=== PATIENT | female | born 1975 | race Caucasian/White ===

== ENCOUNTER 2020-01-24 15:39 | Outpatient (CLI) | payer OTHER, SELFPAY ==
[2020-01-24 16:33] LABS: Basophils Absolute Auto 0.04 K/mm3 (0.00-0.10); Basophils Percent Auto 0.9 % (0.0-1.0); Eosinophils Percent Auto 2.4 % (1.0-6.0); Hematocrit 36.3 % (35.0-49.0); Hemoglobin 11.6 g/dL (12.0-15.0); Immature Granulocyte Absolute 0.01 K/mm3 (0.00-0.00); Immature Granulocyte Percent A 0.2 % (0.0-0.0); Mean Corpuscular Hemoglobin 28.6 pg (27.0-31.0); Mean Corpuscular Volume 89.4 fL (78.0-102.0); Mean Platelet Volume 9.9 fl (9.2-11.8); Monocytes Absolute Auto 0.36 K/mm3 (0.10-0.90); Monocytes Percent Auto 8.5 % (2.0-11.0); Neutrophils Absolute Auto 1.8 K/mm3 (1.7-7.2); Platelet Count Result 228 K/mm3 (150-420); Red Blood Count 4.06 M/mm3 (4.20-5.40); Red Cell Distribution Width 12.6 % (11.6-14.4); White Blood Count 4.2 K/mm3 (4.8-10.8)
[2020-01-25 14:53] LABS: SARS-CoV-2 RNA PCR Negative
== END 2020-01-24 15:40 | disposition home or self-care (01) ==
LOC: CHSLAB 15:42
PROVIDERS: PCP Internal Medicine; Visit Provider Internal Medicine
DX: J02.9 Acute pharyngitis, unspecified (principal); Z20.828 Contact with and (suspected) exposure to other viral communicable diseases
CPT/HCPCS: 36415; 85025; 87635; C9803; U0003

== ENCOUNTER 2020-04-06 16:28 | Outpatient (CLI) | payer OTHER, SELFPAY ==
--- NOTE | ~2020-04-06 | MM_ITS ---
EXAMINATION: MM screening marilyn BI w aaron HISTORY: Screening mammogram TECHNIQUE: Craniocaudal and mediolateral oblique 3-D tomosynthesis images were obtained and synthetic 2-D images were generated. CAD analysis was submitted and interpreted. COMPARISON: 04/04/2019, 02/19/2018 bilateral digital screening mammogram examinations BREAST PARENCHYMAL COMPOSITION: There are scattered areas of fibroglandular density. FINDINGS: There is no evidence of suspicious mass, calcification, or architectural distortion to sugg est malignancy in either breast. There has been no suspicious interval change. IMPRESSION: 1. No mammographic evidence of malignancy. 2. Recommend routine screening mammography in one year. BI-RADS Category 1: Negative Reviewed, dictated and finalized at location A. LE POINTED OPERATOR
== END 2020-04-06 16:29 | disposition home or self-care (01) ==
LOC: ANHIMG 16:30
PROVIDERS: PCP Internal Medicine; Visit Provider Obstetrics & Gynecology
DX: Z12.31 Encounter for screening mammogram for malignant neoplasm of breast (principal)
CPT/HCPCS: 77063; 77067

== ENCOUNTER 2021-01-04 14:44 | Outpatient (CLI) | payer OTHER, SELFPAY ==
--- NOTE | ~2021-01-04 | CT_ITS ---
EXAMINATION: CT abdomen pelvis wo con DATE: 01/04/2021 15:04 INDICATION: Right flank pain. Nausea and diarrhea. TECHNIQUE: Computed tomography (CT) of the abdomen and pelvis was performed without intravenous contr ast. Automated exposure control and iterative reconstruction technique were employed. The dose-length product was 167.00 mGy-cm. COMPARISON: CT abdomen and pelvis 10/31/2018 FINDINGS: The visualized portions of the lung bases are clear without pneumonia or pleural effusion. The heart size is normal. No pericardial effusion. There is a 6.2 x 4.0 cm pericardial cyst in right cardiophrenic angle. The liver is normal. There are changes of cholecystectomy. The spleen, pancreas, and adrenal glands are normal. There is medullary nephrocalcinosis on the right. There is a 2 mm sto ne in left kidney. There are no dilated loops of bowel. The appendix is normal. There are no patholog ically enlarged lymph nodes. There is no free intraperitoneal fluid. There is mild lumbar spondylosis . IMPRESSION: 1. Small nonobstructing left kidney stone. Reviewed, dictated and finalized at location A.
== END 2021-01-04 14:45 | disposition home or self-care (01) ==
LOC: CHSLAB 14:46
PROVIDERS: PCP Internal Medicine; Visit Provider Internal Medicine
DX: M54.9 Dorsalgia, unspecified (principal); R10.9 Unspecified abdominal pain; Z87.442 Personal history of urinary calculi; N20.0 Calculus of kidney
CPT/HCPCS: 74176

== ENCOUNTER 2021-01-06 08:44 | Outpatient (CLI) | payer OTHER, SELFPAY ==
--- NOTE | ~2021-01-06 | XR_ITS ---
XR abdomen/kub 1V DATE: 01/06/2021 09:09 INDICATION: Bilateral flank pain TECHNIQUE: AP projection, 2 views COMPARISON: 01/04/2021 CT abdomen pelvis FINDINGS: No radiographically detected kidney stones are noted. Bilateral calcified pelvic phlebolith s. The psoas shadows are intact. No visceromegaly is detected. There is no evidence of bowel obstruction . Surgical clips, right upper quadrant, consistent with cholecystectomy. Normal heart size. The lung bases are clear. Included skeletal structures are unremarkable. IMPRESSION: Status post cholecystectomy Nonspecific abdomen Reviewed, dictated and finalized at Location A. Reviewed, dictated and finalized at location A.
== END 2021-01-06 08:45 | disposition home or self-care (01) ==
LOC: CHSIMG 08:49
PROVIDERS: PCP Internal Medicine; Visit Provider Urology
DX: R10.9 Unspecified abdominal pain (principal)
CPT/HCPCS: 74018

== ENCOUNTER 2021-04-02 16:09 | Outpatient (CLI) | payer OTHER, SELFPAY ==
[2021-04-02 16:44] LABS: Influenza Control Valid (Valid); SARS-CoV-2 Ag Positive (Negative)
== END 2021-04-02 16:10 | disposition home or self-care (01) ==
LOC: CHSLAB 16:11
PROVIDERS: PCP Internal Medicine; Visit Provider Internal Medicine
DX: U07.1 COVID-19 (principal); J06.9 Acute upper respiratory infection, unspecified
CPT/HCPCS: 87426; 87804; C9803

== ENCOUNTER 2021-08-14 08:47 | Emergency (ER) | payer OTHER, SELFPAY ==
[2021-08-14 08:56] VITALS: BP 122/87; PULSE 70; RESP 16; TEMP 36.5; O2SAT 100
--- NOTE | 2021-08-14 09:09 | ED.EAR ---
HPI - Ear Problem General Chief complaint: Ear Stated complaint: Ear Pain/Dizziness Time Seen by Provider: 08/14/21 09:09 Source: patient, RN notes reviewed and old records reviewed Mode of arrival: ambulatory Limitations: no limitations History of Present Illness HPI Narrative: 46 year old female who presents to [facility] care with complaint of left ear pain since Friday 4 days ago. Patient states she has noted some blood from her left ear, denies any purulent drainage. Patient reports that she does feel dizzy at times with position changes, denies any cough, fevers, nasal discharge or congestion. Patient has taken Tylenol and Benadryl for her symptoms. Patient just traveled by car from [place] over the weekend, no recent swimming. MD Complaint: ear pain Location: left ear Duration: constant Treatment prior to arrival: oral analgesic and other (Benadryl) Related Data Home Medications Medication Instructions Recorded Confirmed dexlansoprazole 60 mg 60 mg PO DAILY 08/14/21 08/14/21 capsule,biphase delayed release (Dexilant) estradiol 2 mg tablet 2 tablet PO DAILY 08/14/21 08/14/21 folic acid 1 mg tablet 1 mg PO DAILY 08/14/21 08/14/21 sulfasalazine 500 mg tablet 0.5 g PO BID 08/14/21 08/14/21 topiramate 100 mg tablet 100 mg PO DAILY 08/14/21 08/14/21 topiramate 100 mg tablet 100 mg PO HS 08/14/21 08/14/21 topiramate 50 mg tablet 50 mg PO HS 08/14/21 08/14/21 Allergies Allergy/AdvReac Type Severity Reaction Status Date / Time methotrexate Allergy Unknown BLISTERS Verified 08/14/21 09:21 AND SORES IN MOUTH AND THROAT milk Allergy Unknown COUGHING Verified 08/14/21 09:21 AFTER INJESTING wheat Allergy Unknown COUGHING Verified 08/14/21 09:21 AFTER INGESTING Review of Systems Review of Systems: CONSTITUTIONAL: Denies fever, chills, or sweats. EYES: Denies visual changes, redness, or discharge. ENT: Denies rhinorrhea, congestion, sore throat, positive for left ear otalgia. CARDIOVASCULAR: Denies chest pain, palpitations, or edema. RESPIRATORY: Denies cough or dyspnea. GASTROINTESTINAL: Denies abdominal pain, nausea, vomiting, or diarrhea. GENITOURINARY: Denies dysuria or hematuria. SKIN: Denies rash or itching. MUSCULOSKELETAL: No verbalized back pain, joint pain, or myalgia. NEUROLOGIC: Denies headache, numbness, or weakness, some dizziness with position changes PSYCHIATRIC: Positive for history ofnxiety or depression. [facility] Past Medical History Medical History (Updated 08/14/21 @ 09:45 by Tessie Johansen NP) Hiatal hernia History of migraine headaches Kidney stones Rheumatoid arthritis UTI (urinary tract infection) Surgical History Surgical History (Updated 08/14/21 @ 09:41 by Tessie Johansen NP) H/O tubal ligation H/O: hysterectomy History of bilateral breast reduction surgery History of cholecystectomy Social History Social History (Updated 08/14/21 @ 09:40 by Tessie Johansen NP) Smoking status: Never smoker Living arrangements: with family Gender identity (if verbalized by the patient): Female Comments At time of signature, agree with nursing past medical, surgical, social and family history. There is no relevant family history pertinent to the presenting complaint Exam Narrative: GENERAL: Well-appearing, well-nourished, and in no acute distress. HEAD: Normocephalic, atraumatic. EYES: PERRLA and EOMI. ENT: Nares clear, no rhinorrhea or epistaxis. Mucous membranes moist.TM's normal with good light reflex,left ear canal red with some old dried blood in ear canal,some redness of left ear canal noted. Right ear canal normal, throat pink with no redness, lesions or exudates, no tonsil swelling NECK: Supple.no lymphadenopathy CHEST: Clear to auscultation. No respiratory distress.no tachypnea SAO2 100% on room air HEART: Regular rate and rhythm. No murmur heard. Normal peripheral pulses. ABDOMEN: Soft, nontender, nondistended, normal active bowel soun
== END 2021-08-14 09:29 | disposition home or self-care (01) ==
PROVIDERS: Emergency Provider Registered Nurse; PCP Internal Medicine
DX: H60.312 Diffuse otitis externa, left ear (principal); M06.9 Rheumatoid arthritis, unspecified
CPT/HCPCS: 99213; G0463

== ENCOUNTER 2021-11-15 16:57 | Outpatient (CLI) | payer OTHER, SELFPAY ==
--- NOTE | ~2021-11-15 | MM_ITS ---
EXAMINATION: MM screening marilyn BI w aaron HISTORY: Screening mammogram TECHNIQUE: Craniocaudal and mediolateral oblique 3-D tomosynthesis images were obtained and synthetic 2-D images were generated. CAD analysis was submitted and interpreted. COMPARISON: 04/06/2020, 03/25/2019 BREAST PARENCHYMAL COMPOSITION: There are scattered areas of fibroglandular density. FINDINGS: There is no suspicious mass, calcification, or architectural distortion to suggest malignan cy in either breast. There has been no suspicious interval change. IMPRESSION: 1. No mammographic evidence of malignancy. 2. Recommend routine screening mammography in one year. BI-RADS Category 1: Negative Reviewed, dictated and finalized at location A.
== END 2021-11-15 16:58 | disposition home or self-care (01) ==
PROVIDERS: PCP Internal Medicine; Visit Provider Obstetrics & Gynecology
DX: Z12.31 Encounter for screening mammogram for malignant neoplasm of breast (principal)
CPT/HCPCS: 77063; 77067

== ENCOUNTER 2021-12-06 15:40 | Outpatient (CLI) | payer OTHER, SELFPAY ==
--- NOTE | ~2021-12-06 | XR_ITS ---
XR hip LT min 2V DATE: 12/06/2021 16:48 INDICATION: Left hip pain TECHNIQUE: AP and lateral views COMPARISON: None FINDINGS: No fracture or dislocation, avascular necrosis or bone destruction. Left hip joint space ap pears well preserved. The pubic symphysis and this left sacral iliac joint appear intact. IMPRESSION: Negative left hip Reviewed, dictated and finalized at location B. IMPRESSION: Negative left hip
--- NOTE | ~2021-12-06 | XR_ITS ---
XR_CERV2-3V_CR DATE: 12/06/2021 16:47 INDICATION: Neck and shoulder pain TECHNIQUE: AP, open-mouth, lateral views COMPARISON: None FINDINGS: C1 and C2 are normally aligned and the odontoid process is intact. No fracture or dislocati on or locked facet or prevertebral soft tissue swelling. There is mild degenerative disc disease and posterior spurring at C5-6 and C6-7. IMPRESSION: Mild degenerative disc disease and posterior spurring at C5-6 and C6-7 Reviewed, dictated and finalized at Location A. Reviewed, dictated and finalized at location B. IMPRESSION: Mild degenerative disc disease and posterior spurring at C5-6 and C 6-7
--- NOTE | ~2021-12-06 | XR_ITS ---
XR lumbar spine 2-3V DATE: 12/06/2021 16:48 INDICATION: Lower back pain, coccyx pain TECHNIQUE: AP, lateral, coned lateral lumbosacral views COMPARISON: 10/28/2006 lumbar spine FINDINGS: No fracture or bone destruction. The lumbar pedicles are intact. Lumbar and lumbosacral int erspaces are well preserved. Minimal degenerative lipping of the lumbar vertebrae. No fracture of the sacrum or coccyx is detected. The sacral iliac joints are intact. Surgical clips, right upper quadrant, likely due to cholecystectomy. IMPRESSION: Minimal degenerative change of the lumbar spine Reviewed, dictated and finalized at location B.
[2021-12-06 16:37] LABS: Basophils Absolute Auto 0.07 K/mm3 (0.00-0.10); Basophils Percent Auto 1.4 % (0.0-1.0); Eosinophils Absolute Auto 0.25 K/mm3 (0.02-0.50); Hematocrit 32.6 % (35.0-49.0); Hemoglobin 10.5 g/dL (12.0-15.0); Immature Granulocyte Absolute 0.01 K/mm3 (0.00-0.00); Immature Granulocyte Percent A 0.2 % (0.0-0.0); Lymphocytes Absolute Auto 1.61 K/mm3 (1.10-4.50); Lymphocytes Percent Auto 32.4 % (18.0-42.0); Mean Corpuscular HGB Conc 32.2 g/dL (32.0-36.0); Mean Corpuscular Hemoglobin 30.6 pg (27.0-31.0); Mean Platelet Volume 10.4 fl (9.2-11.8); Neutrophils Absolute Auto 2.6 K/mm3 (1.7-7.2); Platelet Count Result 227 K/mm3 (150-420); Red Blood Count 3.43 M/mm3 (4.20-5.40); Red Cell Distribution Width 12.4 % (11.6-14.4)
[2021-12-06 16:46] LABS: Add Urine Microscopic? NO; Appearance Urine Clear (Clear); Bilirubin Urine Negative (Negative); Blood Urine Negative (Negative); Color Urine Yellow (Yellow); Glucose Urine UA Negative (Negative); Ketones Urine Negative (Negative); Leukocyte Esterase Ur Negative (Negative); Nitrate Urine Negative (Negative); Protein Urine Negative (Negative); Urobilinogen Urine 0.2 mg/dL (0.2-1.0)
[2021-12-06 16:49] LABS: Rheumatoid Factor Screen Negative (Negative)
[2021-12-06 17:04] LABS: Alanine Aminotransferase 19 U/L (14-59); Albumin Level 4.1 g/dL (3.4-5.0); Alkaline Phosphatase 64 U/L (46-116); Anion Gap 11 mmol/L (8-16); Aspartate Amino Transferase 20 U/L (15-37); Bilirubin,Total 0.3 mg/dL (0.00-1.00); Blood Urea Nitrogen 13 mg/dL (7-18); Calcium 8.6 mg/dL (8.5-10.1); Carbon Dioxide 22 mmol/L (21-32); Chloride 106 mmol/L (98-108); Estimated Glomerular Filt Rate 58; Free T4 Free Thyroxine 0.86 ng/dL (0.76-1.46); Glucose 87 mg/dL (70-99); Osmolality Calculated 287 mOsm/kg (285-295); Potassium 3.9 mmol/L (3.5-5.1); Sodium 139 mmol/L (136-145); Thyroid Stimulating Hormone 2.97 uIU/mL (0.36-3.74); Total Protein 6.9 g/dL (6.4-8.2)
[2021-12-06 17:06] LABS: CRP < 0.2 mg/dL (0.0-0.9)
[2021-12-10 09:19] LABS: Iron 74 ug/dL (50-170); Percent Iron Saturation 26 % (12-57)
== END 2021-12-06 15:41 | disposition home or self-care (01) ==
LOC: CHSLAB 15:43
PROVIDERS: PCP Internal Medicine; Visit Provider Nurse Practitioner Family
DX: M54.2 Cervicalgia (principal); M06.9 Rheumatoid arthritis, unspecified; M25.552 Pain in left hip; M54.50 Low back pain, unspecified; M25.50 Pain in unspecified joint; M25.519 Pain in unspecified shoulder
CPT/HCPCS: 36415; 72040; 72100; 73502; 80053; 81003; 83540; 83550; 84439; 84443; 84550; 85025; 86038; 86039; 86140; 86430; 87086; 87088

== ENCOUNTER 2021-12-13 14:12 | Outpatient (CLI) | payer OTHER, SELFPAY ==
--- NOTE | ~2021-12-13 | US_ITS ---
EXAMINATION: US soft tissue head and neck DATE: 12/13/2021 14:45 INDICATION: Palpable mass directly behind the left ear lobe TECHNIQUE: Multiple grayscale and Doppler ultrasound images of the region of concern posterior to the left ear lobe were obtained. COMPARISON: MRI dated 09/14/2014 FINDINGS: Palpable abnormality of concern corresponds to a hypervascular 1.4 x 1.3 x 1.0 cm hypoechoic mass wit h relatively well-defined slightly lobular margins. This located within the hyperechoic tissue with a ppearance and location most consistent with the left parotid gland. No other abnormal masses or fluid collections identified. IMPRESSION: 1. 1.4 cm hypervascular left internal parotid mass concerning for neoplasm either benign or malignant . Differential would also include an enlarged intraparotid lymph node. Recommend ultrasound-guided fi ne-needle aspiration. Reviewed, dictated and finalized at location A. IMPRESSION: 1. 1.4 cm hypervascular left internal parotid mass concerning for neoplasm eith er benign or malignant. Differential would also include an enlarged intraparoti d lymph node. Recommend ultrasound-guided fine-needle aspiration.
== END 2021-12-13 14:13 | disposition home or self-care (01) ==
LOC: CHSIMG 14:13
PROVIDERS: PCP Internal Medicine; Visit Provider Nurse Practitioner Family
DX: R22.0 Localized swelling, mass and lump, head (principal)
CPT/HCPCS: 76536

== ENCOUNTER 2022-01-10 12:36 | Outpatient (CLI) | payer OTHER, SELFPAY ==
--- NOTE | ~2022-01-10 | US_ITS ---
EXAMINATION: US FNA w image guidance DATE: 01/10/2022 13:51 INDICATION: Other diseases salivary glands. Left parotid nodule. TECHNIQUE: A time-out was performed to verify the patient's name, date of , and procedure to be performed . The procedure and its benefits and risks were discussed with the patient. Risks specifically discus sed included bleeding and infection. The patient understood the risks and agreed to proceed. The neck was prepped and draped in the usual sterile manner. 3 mL 1% lidocaine was used for local anesthesia . 6 passes were made with a 25G needle into the lesion. Appropriate needle location was documented with continuous sonographic guidance. A sterile bandage was applied. There were no immediate compli cations. FINDINGS: Grayscale ultrasound images demonstrate biopsy needles advanced into a 1.4 x 1.2 x 1.4 cm very hypoec hoic nodule with internal vascularity in the posterior most left parotid gland positioned along the a nteroinferior margin of the left ear. IMPRESSION: 1. Successful ultrasound-guided fine needle aspiration of a 1.4 cm left parotid nodule. Reviewed, dictated and finalized at location A. IMPRESSION: 1. Successful ultrasound-guided fine needle aspiration of a 1.4 cm left paroti d nodule.
== END 2022-01-10 12:37 | disposition home or self-care (01) ==
PROVIDERS: PCP Internal Medicine; Visit Provider Otolaryngology
DX: K11.8 Other diseases of salivary glands (principal)
CPT/HCPCS: 10005; 88173; 88305

== ENCOUNTER → 2022-08-13 08:01 | Outpatient (CLI) | payer OTHER, SELFPAY ==
--- NOTE | ~2022-08-13 | MR_ITS ---
EXAMINATION: MR lumbar spine wo con DATE: 08/13/2022 08:36 INDICATION: Back pain TECHNIQUE: Magnetic resonance imaging (MRI) of the lumbar spine was performed without intravenous con trast. Sequences included sagittal T2-weighted FSE, sagittal T2-weighted FS FSE, sagittal T1-weighted FSE, and axial T2-weighted FSE. COMPARISON: None FINDINGS: Alignment is normal. Chronic minimal anterior wedging at T12 and L1. Remaining lumbar vertebral body heights are normal. Normal marrow signal. Mild disc height loss at L4-L5. The conus medullaris termi nates at T12. There is normal signal in the caudal spinal cord. Paravertebral soft tissues are unrema rkable. The following disc levels are specifically discussed: T12-L1: The disc does not extend beyond the endplate margin. There is mild bilateral facet joint oste oarthritis. There is no neural foraminal stenosis. There is no central canal stenosis. L1-L2: The disc does not extend beyond the endplate margin. There is minimal bilateral facet joint os teoarthritis. There is no neural foraminal stenosis. There is no central canal stenosis. L2-L3: Minimal disc protrusions at the bilateral foraminal zones. There is minimal bilateral facet lynette int osteoarthritis. There is minimal bilateral neural foraminal stenosis. There is no central canal s tenosis. L3-L4: Minimal disc protrusions at the bilateral foraminal zones. There is mild bilateral facet joint osteoarthritis. There is mild bilateral neural foraminal stenosis. There is no central canal stenosi s. L4-L5: Minimal left and mild right foraminal zone disc protrusions. There is mild bilateral facet vidal nt osteoarthritis. There is mild bilateral neural foraminal stenosis. There is no central canal steno sis. L5-S1: The disc does not extend beyond the endplate margin. There is mild bilateral facet joint osteo arthritis. There is no neural foraminal stenosis. There is no central canal stenosis. IMPRESSION: 1. Minimal to mild lumbar spondylosis. Reviewed, dictated and finalized at location L.
== END ==
PROVIDERS: PCP Internal Medicine; Visit Provider Internal Medicine
DX: M47.896 Other spondylosis, lumbar region (principal)
CPT/HCPCS: 72148

== ENCOUNTER 2022-09-09 08:25 | Outpatient (RCR) | payer OTHER, SELFPAY ==
--- NOTE | 2022-09-09 08:00 | OPREHPOC ---
Outpatient Therapy Plan of Care This is a Multidisciplinary Plan of Care that may contain components documented by all disciplines (PT, OT, and ST.) PT Problem 1 PT Problem #1 Knowledge Deficit PT Goal 1 Goal Patient to demonstrate independence with HEP Target Visit 12 PT Problem 2 PT Problem #2 Pain PT Goal 1 Goal 1. Patient to report highest pain at 2/10 2. Patient to report no sleep disturbance due to low back pain Target Visit 12 PT Problem 3 PT Problem #3 Impaired Strength PT Goal 1 Goal Patient to demonstrate 5/5 B LE strength to decrease pain with prolonged ambulation Target Visit 12 PT Problem 4 PT Problem #4 Impaired Range of Motion PT Goal 1 Goal Patient to demonstrate full lumbar ROM with no increase in pain to return to house hold chores at PLOF Target Visit 12 PT Problem 5 PT Problem #5 Impaired Functional Mobil PT Goal 1 Goal 1. Patient to report ability to ambulate >30 min with no increase in pain 2. Patient to report ability to sit at her desk >2 hours with no increase in pain Target Visit 12
--- NOTE | 2022-09-09 08:00 | PTOPEVAL1 ---
Assessment and note entered by Deanna De Luna DPT Evaluation Information Assessment Status Evaluation Diagnosis low back pain Onset 09/03/22 Subjective Information Patient reports low back pain that has gotten worse since November of 2021. She denies any injury. She reports sitting at her desk for work and walking long distances increase her pain. She reports if she sleeps on her back she will get woken up. She reports that pain radiates down B thighs and is aching . She reports putting heat on her back will help with pain some. She reports on 09/11/22 she will get the first of 3 injections. Reported Pain Level Pain Score 3: Self Report Assessment PT Clinical Summary Patient is a 47 year old female who presents to PT with low back pain. Patient demonstrates decreased B LE strength, decreased core strength and decreased B LE flexibility impairing her ability to sit for prolonged periods at work and ambulate prolonged periods at home and in the community. She would benefit from skilled PT to address impairments and return to PLOF Plan of Care Interventions Electrical Stimulation,Gait Training,Hot Pack/Cold Pack,Manual Therapy,Mechanical Traction,Neuro Re- education,Patient/Caregiver Educati,Therapeutic Activities,Therapeutic Exercise PT Services Indicated Yes Treatment Frequency and 2x weekly for 10 visits Duration These treatments will address the objective and functional deficits as defined above. The patient will be advanced safely and appropriately in order for the patient to progress towards his/her prior level of function. Additional exercises will be introduced and as well as a comprehensive home exercise program upon discharge, if needed, ?to ensure carryover of functional gains achieved in the clinic. This treatment plan has been reviewed and agreement upon by the patient.
--- NOTE | 2022-12-30 14:30 | PCPTNOTE ---
Patient discharged due to not returning for scheduled appointments
== END 2022-09-23 23:59 | disposition home or self-care (01) ==
LOC: CHSPT 08:25
PROVIDERS: Visit Provider Nurse Practitioner Family
DX: M43.06 Spondylolysis, lumbar region (principal)
CPT/HCPCS: 97014; 97110; 97161; 97530; G0283

== ENCOUNTER 2022-10-02 07:18 | Outpatient (CLI) | payer OTHER, SELFPAY ==
[2022-10-02 08:09] LABS: Albumin Level 3.9 g/dL (3.4-5.0); Anion Gap 10 mmol/L (8-16); Blood Urea Nitrogen 18 mg/dL (7-18); Calcium 8.5 mg/dL (8.5-10.1); Carbon Dioxide 23 mmol/L (21-32); Chloride 111 mmol/L (98-108); Estimated Glomerular Filt Rate 55; Glucose 86 mg/dL (70-99); Osmolality Calculated 298 mOsm/kg (285-295); Phosphorus 3.6 mg/dL (2.6-4.7); Potassium 4.3 mmol/L (3.5-5.1); Sodium 144 mmol/L (136-145)
== END 2022-10-02 07:19 | disposition home or self-care (01) ==
LOC: CHSLAB 07:19
PROVIDERS: PCP Internal Medicine; Visit Provider Internal Medicine Nephrology
DX: E87.29 Other acidosis (principal)
CPT/HCPCS: 36415; 80069

== ENCOUNTER 2023-02-08 07:29 | Outpatient (CLI) | payer OTHER, SELFPAY ==
--- NOTE | ~2023-02-08 | MM_ITS ---
EXAMINATION: MM screening marilyn BI w aaron HISTORY: Screening mammogram TECHNIQUE: Craniocaudal and mediolateral oblique 3-D tomosynthesis images were obtained and synthetic 2-D images were generated. CAD analysis was submitted and interpreted. COMPARISON: 11/15/2021, 04/06/2020, 03/25/2019 BREAST PARENCHYMAL COMPOSITION:There are scattered areas of fibroglandular density. FINDINGS: No suspicious mass, calcification, or architectural distortion are identified in either manuel ast to suggest malignancy. There has been no suspicious interval change. IMPRESSION: No mammographic evidence of malignancy. Recommend routine screening mammography in one year. BI-RADS Category 1: Negative Reviewed, dictated and finalized at location . ERCIAL ENGINEER
== END 2023-02-08 07:30 | disposition home or self-care (01) ==
PROVIDERS: PCP Internal Medicine; Visit Provider Internal Medicine
DX: Z12.31 Encounter for screening mammogram for malignant neoplasm of breast (principal)
CPT/HCPCS: 77063; 77067

== ENCOUNTER 2023-02-24 14:00 | Outpatient (CLI) | payer OTHER, SELFPAY ==
[2023-02-24 14:14] LABS: Appearance Urine Clear (Clear); Basophils Absolute Auto 0.06 K/mm3 (0.00-0.10); Basophils Percent Auto 1.4 % (0.0-1.0); Bilirubin Urine Negative (Negative); Blood Urine Negative (Negative); Color Urine Light Yellow (Yellow); Eosinophils Absolute Auto 0.19 K/mm3 (0.02-0.50); Eosinophils Percent Auto 4.4 % (1.0-6.0); Glucose Urine UA Negative (Negative); Hematocrit 37.5 % (35.0-49.0); Hemoglobin 12.4 g/dL (12.0-15.0); Immature Granulocyte Absolute 0.01 K/mm3 (0.00-0.00); Immature Granulocyte Percent A 0.2 % (0.0-0.0); Ketones Urine Trace (Negative); Leukocyte Esterase Ur Negative LEU/UL (Negative); Lymphocytes Absolute Auto 1.69 K/mm3 (1.10-4.50); Lymphocytes Percent Auto 39.5 % (18.0-42.0); Mean Corpuscular HGB Conc 33.1 g/dL (32.0-36.0); Mean Corpuscular Hemoglobin 29.8 pg (27.0-31.0); Mean Corpuscular Volume 90.1 fL (78.0-102.0); Mean Platelet Volume 9.8 fl (9.2-11.8); Monocytes Absolute Auto 0.34 K/mm3 (0.10-0.90); Monocytes Percent Auto 7.9 % (2.0-11.0); Neutrophils Percent Auto 46.6 % (50.0-70.0); Nitrate Urine Negative (Negative); Platelet Count Result 257 K/mm3 (150-420); Protein Urine Negative (Negative); Red Blood Count 4.16 M/mm3 (4.20-5.40); Red Cell Distribution Width 12.6 % (11.6-14.4); Specific Grav Ur <= 1.005 (1.010-1.020); Urobilinogen Urine 0.2 mg/dL (0.2-1.0); White Blood Count 4.3 K/mm3 (4.8-10.8); pH Urine 6.5 (5.0-8.0)
[2023-02-24 14:29] LABS: INR 0.9; Partial Thromboplastin Time 28.5 SEC (23.90-30.70); Prothrombin Time 10.2 Seconds (9.50-12.10)
[2023-02-24 14:47] LABS: Add Urine Microscopic? YES; Bacteria Urine Trace /hpf; RBC Urine None seen /hpf (0-2); Squamous Epithelial Cell Urine Moderate /hpf (Few); WBC Urine None seen /hpf (0-3)
[2023-02-24 14:54] LABS: Alanine Aminotransferase 26 U/L (14-59); Alkaline Phosphatase 63 U/L (46-116); Anion Gap 9 mmol/L (8-16); Aspartate Amino Transferase 17 U/L (15-37); Bilirubin,Total 0.2 mg/dL (0.00-1.00); Blood Urea Nitrogen 14 mg/dL (7-18); Calcium 8.6 mg/dL (8.5-10.1); Carbon Dioxide 25 mmol/L (21-32); Chloride 103 mmol/L (98-108); Estimated Glomerular Filt Rate 53; Glucose 90 mg/dL (70-99); Osmolality Calculated 284 mOsm/kg (285-295); Potassium 3.7 mmol/L (3.5-5.1); Sodium 137 mmol/L (136-145); Total Protein 7.6 g/dL (6.4-8.2)
== END 2023-02-24 14:01 | disposition home or self-care (01) ==
LOC: CHSLAB 14:02
PROVIDERS: PCP Internal Medicine; Visit Provider Internal Medicine
DX: R10.9 Unspecified abdominal pain (principal)
CPT/HCPCS: 36415; 80053; 81001; 85025; 85610; 85730

== ENCOUNTER 2023-04-05 08:52 | Outpatient (CLI) | payer OTHER, SELFPAY ==
[2023-04-05 09:55] LABS: Albumin Level 3.5 g/dL (3.4-5.0); Anion Gap 10 mmol/L (8-16); Blood Urea Nitrogen 12 mg/dL (7-18); Calcium 8.4 mg/dL (8.5-10.1); Carbon Dioxide 23 mmol/L (21-32); Chloride 107 mmol/L (98-108); Estimated Glomerular Filt Rate 59; Glucose 86 mg/dL (70-99); Osmolality Calculated 288 mOsm/kg (285-295); Potassium 3.9 mmol/L (3.5-5.1); Sodium 140 mmol/L (136-145)
== END 2023-04-05 08:53 | disposition home or self-care (01) ==
PROVIDERS: PCP Internal Medicine; Visit Provider Internal Medicine Nephrology
DX: E87.29 Other acidosis (principal)
CPT/HCPCS: 36415; 80069

== ENCOUNTER 2023-07-01 08:46 | Outpatient (CLI) | payer OTHER, SELFPAY ==
[2023-07-01 09:51] LABS: Cholesterol 224 mg/dL (0-200); HDL Direct 76 mg/dL (40-60); LDL Cholesterol Calculated 119 mg/dL (<130); Triglycerides 143 mg/dL (0-150)
== END 2023-07-01 08:47 | disposition home or self-care (01) ==
LOC: CHSLAB 08:47
PROVIDERS: PCP Family Medicine; Visit Provider Family Medicine
DX: Z00.00 Encounter for general adult medical examination without abnormal findings (principal)
CPT/HCPCS: 36415; 80061

== ENCOUNTER 2023-10-30 17:30 | Outpatient (CLI) | payer OTHER, SELFPAY ==
--- NOTE | ~2023-10-30 | XR_ITS ---
EXAMINATION: XR ankle RT min 3V DATE: 10/30/2023 17:40 INDICATION: Chronic right ankle pain TECHNIQUE: Anteroposterior, oblique, mortise, and lateral views of the right ankle were obtained. COMPARISON: None. FINDINGS: Bone alignment is normal. No acute fracture. Couple heterotopic ossicles near the tip the medial mall eolus likely sequela of chronic deltoid ligament sprain. Joint spaces are normal. No ankle joint effu tm. Small to moderate-sized plantar calcaneal spur. IMPRESSION: 1. Heterotopic ossicles along the medial malleolus likely sequela of chronic deltoid ligament sprain. Reviewed, dictated and finalized at location A. IMPRESSION: 1. Heterotopic ossicles along the medial malleolus likely sequela of chronic de ltoid ligament sprain.
== END 2023-10-30 17:31 | disposition home or self-care (01) ==
LOC: CHSIMG 17:32
PROVIDERS: PCP Family Medicine; Visit Provider Family Medicine
DX: M06.9 Rheumatoid arthritis, unspecified (principal)
CPT/HCPCS: 73610

== ENCOUNTER 2024-02-18 08:34 | Outpatient (CLI) | payer OTHER, SELFPAY ==
--- NOTE | ~2024-02-18 | MM_ITS ---
EXAMINATION: MM screening marilyn BI w aaron HISTORY: Screening TECHNIQUE: Craniocaudal and mediolateral oblique 3-D tomosynthesis images were obtained and synthetic 2-D images were generated. CAD analysis was submitted and interpreted. COMPARISON: Comparison to multiple prior studies sequentially, with oldest reviewed study dated 08/2017. BREAST PARENCHYMAL COMPOSITION: Not Dense: The breasts are almost entirely fatty. FINDINGS: There is no evidence of suspicious mass, calcification, or architectural distortion to sugg est malignancy in either breast. There has been no suspicious interval change. IMPRESSION: 1. No mammographic evidence of malignancy. 2. Recommend routine screening mammography in one year. BI-RADS Category 1: Negative Reviewed, dictated and finalized at location B. ING MACHINE OPERATOR
== END 2024-02-18 08:35 | disposition home or self-care (01) ==
LOC: CHSIMG 08:36
PROVIDERS: PCP Family Medicine; Visit Provider Family Medicine
DX: Z12.31 Encounter for screening mammogram for malignant neoplasm of breast (principal)
CPT/HCPCS: 77063; 77067

== ENCOUNTER 2025-02-16 09:00 | Outpatient (CLI) | payer OTHER, SELFPAY ==
[2025-02-16 09:14] LABS: Hematocrit 37.8 % (35.0-49.0); Hemoglobin 12.4 g/dL (12.0-15.0); Immature Granulocyte Percent A 0.2 % (0.0-0.0); Lymphocytes Absolute Auto 1.61 K/mm3 (1.10-4.50); Mean Corpuscular HGB Conc 32.8 g/dL (32-36); Mean Corpuscular Hemoglobin 29.0 pg (27.0-31.0); Mean Corpuscular Volume 88.3 fL (78.0-102.0); Nucleated Red Blood Cells Absolute Auto 0.00 K/mm3 (0.00-0.00); Nucleated Red Blood Cells Perc 0.0 % (0-0.0); Platelet Count Result 251 K/mm3 (150-420); Red Blood Count 4.28 M/mm3 (4.20-5.40); White Blood Count 4.6 K/mm3 (4.8-10.8)
--- OUTSIDE RECORDS SUMMARY | 2025-02-16 09:41 | XMS_ITS | Encounter Summary ---
Author Organization [facility] Address [address] [place] [address] Phone Care Team Providers Care Dynamics Ax Consultant Name Role Phone Johnathan Thomas MD Primary Care Provider [phone] Herlinda Elizondo APRN, BLOCKMASON Unavailable Ruiz Mensah MD Primary Care Provider [phone] Reason for Visit * Reason Comments Medication Refill Encounter Details Date Type Department Care Team (Late st Contact Info) Description 11/03/2021 Refill [facility] - [facility] - [place] [address] [place] [id number] Celsa Mack Savana, PAC [address] [place] [address] Medication Refill Social History Tobacco Use Types Packs/Day Years Used Date Smoking Tobacco: Never Smokeless Tobacco: Never Alcohol Use Standard Drinks/Week Comments No 0 (1 standard drink = 0.6 oz pur e alcohol) PHQ-2 Answer Date Recorded PHQ-2 Score 0 11/18/2018 Sexually Active Control Partners Comments Yes Comments No Sex and Gender Information Value Date Recorded Sex Assigned at Not on file Legal Sex Female 11:18 PM CDT Gender Identity Not on file Sexual Orientation Not on file Occupation Industry Job Start Date Job End Date [employer] Not on file Not on file Not on file documented as of this encounter Miscellaneous Notes * Telephone Encounter - Precious lAicia RN - 11/05/2021 12:18 PM CDT Medication refilled and signed [facility] [place] order for pediatric and adult patients. documented in this encounter Plan of Treatment Upcoming Encounters Date Type Department Care Team (Late st Contact Info) Description 02/24/2025 8:00 AM ENGRAVING PLATE MAKER Office Visit [facility] [address] [place] [address] Steve Newton MD [address] [address] documented as of this encounter Visit Diagnoses Not on filedocumented in this encounter Additional Health Concerns Assessment Noted Time PHQ-9 Depression Total Score: 0 03/03/20 18 10:40 AM ENGRAVING PLATE MAKER documented as of this encounter Care Teams Dynamics Ax Consultant Relationship Specialty Start Date End Date Johnathan Thomas MD [address] [place] [address] PCP - General Internal Medicine 01/27/18 09/22/23 Ruiz Mensah MD [address] [place] [id number] PCP - General Family Medicine 09/23/23 Herlinda Elizondo APRN, BLOCKMASON [address] [place] [address] Nurse Practitioner Advanced Practice Nurse 09/24/22 documented as of this encounter
--- OUTSIDE RECORDS SUMMARY | 2025-02-16 09:41 | XMS_ITS | Encounter Summary ---
Author Organization [facility] Address [address] [place] [address] Phone Care Team Providers Care Shift Lab Technician Name Role Phone Johnathan Thomas MD Primary Care Provider [phone] Herlinda Elizondo APRN, CHIEF INTERNAL AUDITOR Unavailable Ruiz Mensah MD Primary Care Provider [phone] Reason for Visit * Reason Comments Medication Refill Encounter Details Date Type Department Care Team (Late st Contact Info) Description 12/27/2020 Refill [facility] - [facility] - [place] [address] [place] [id number] Celsa Mack Savana, PAC [address] [place] [address] Medication Refill Social History Tobacco Use Types [...] Miscellaneous Notes * Telephone Encounter - Precious Alicia RN - 12/27/2020 1:32 PM CDT [facility]ication [facility] medication [facility] order for pediatric and adult patients. documented in this encounter Plan of Treatment Upcoming Encounters Date Type Department Care Team (Late st Contact Info) Description 02/24/2025 8:00 AM PRODUCTION LABORER Office Visit [facility]astro[facility] [address] [place] [address] Steve Newton MD [address] [address] documented as of this encounter Visit Diagnoses Not on filedocumented in this encounter Additional Health Concerns Assessment Noted Time PHQ-9 Depression Total Score: 0 03/03/20 18 10:40 AM PRODUCTION LABORER documented as of this encounter Care Teams Shift Lab Technician Relationship Specialty Start Date End Date Johnathan Thomas MD [address] [place] [address] PCP - General Internal Medicine 01/27/18 09/22/23 Ruiz Mensah MD [address] [place] [id number] PCP - General Family Medicine 09/23/23 Herlinda Elizondo APRN, CHIEF INTERNAL AUDITOR [address] [place] [address] Nurse Practitioner Advanced Practice Nurse 09/24/22 documented as of this encounter
--- OUTSIDE RECORDS SUMMARY | 2025-02-16 09:41 | XMS_ITS | Clinical Summary ---
Author Organization [facility] Address [facility] [place] [address] Care Team Providers Care Director Of Oncology Name Role Phone DanaAshwini campbellsh Daron Primary Care Provider Allergies Active Allergy Reactions Criticality Noted Date Comments Methotrexate Other (See comments) Low 06/06/2021 Mouth and esophagus ulcerations Propranolol Swelling Medium 06/20/2021 Medications dexlansoprazole (Dexilant) 60 mg capsule Take 1 tablet by mouth daily 1 Active estradioL (ESTRACE) 2 mg tablet 1 Active cholecalciferol (VITAMIN D-3) 5,000 unit capsule Take 1,000 Units by mouth daily Active acetaminophen (TylenoL) 325 mg capsule Take by mouth as needed Active melatonin tablet Take by mouth Active riboflavin (Vitamin B-2) 100 mg tablet 200 mg 2 (two) times a day Active magnesium oxide (MAG-OX) 400 mg (241.3 mg elemental magnesium) tablet Take 200 mg by mouth 2 (two) times a day Active topiramate (TOPAMAX) 50 mg tablet TAKE 2 TABLETS BY MOUTH IN THE MORNING AND 3 TABS IN THE EVENINGStren gth: 50 mg 450 tablet 3 3 Active ubrogepant (UBRELVY) 100 mg tablet Take 1 tablet (100 mg total) by mouth as needed for migraine May repeat dose once in 2 hours if no relief. Do not exceed 2 doses in 24 hrs. 10 tablet 5 3 Active ondansetron ODT (ZOFRAN-ODT) 4 mg disintegrating tablet Take 1 tablet (4 mg total) by mouth every 8 (eight) hours as needed for nausea or vomiting 20 tablet 3 3 Active Active Problems Problem Noted Date Diagnosed Date Methotrexate adverse reaction 06/06/2021 Overview (06/06/2021): Mouth and esophagus ulceration H/O total hysterectomy 01/02/2021 Rheumatoid arthritis involving multiple sites Eosinophilic esophagitis 12/31/2019 Inflammatory polyarthropathy 11/07/2016 High risk medication use 11/07/2016 Positive JANNIE (antinuclear antibody) 11/07/2016 Anemia 11/07/2016 Nausea 11/07/2016 Migraine with aura 06/01/2010 Surgical History Surgery Date Site/Laterality Comments CHOLECYSTECTOMY Cholecystectomy HYSTERECTOMY Hysterectomy TOTAL ABDOMINAL HYSTERECTOMY Hysterectomy, total Medical History Medical History Date Comments Hx Other Medical rheumatoid arth ritis; Comments: GIUESPPE 12/06/2013 - Hx Other Medical migraines; Comm ents: GIUSEPPE 12/06/2013 - Gastroesophageal reflux disease GERD Hx Other Medical gallbladder rem renata; Comments: GIUSEPPE 12/06/2013 - Hx Other Medical total hysterect annie Family History Medical History Relation Name Comments Hypertension Father Hypertension; Migraines Father Bipolar disorder Other 1 Family hist ory of Bipolar disorder; Hypertension Other 2 Family history of Hypertension; Relation Name Status Comments Father Other 1 Other 2 Social History Tobacco Use Types Packs/Day Years Used Date Smoking Tobacco: Never Smokeless Tobacco: Never Alcohol Use Standard Drinks/Week Comments No 0 (1 standard drink = 0.6 oz pur e alcohol) Comments Unknown Sex and Gender Information Value Date Recorded Sex Assigned at Not on file Legal Sex Female 1:55 AM INTERMODAL TRUCK DRIVER Gender Identity Female 01/26/2021 12:27 PM INTERMODAL TRUCK DRIVER Sexual Orientation Straight 01/26/2021 12 :27 PM INTERMODAL TRUCK DRIVER Last Filed Vital Signs Vital Sign Reading Time Taken Comments Blood Pressure 120/77 01/30/2021 8:08 AM INTERMODAL TRUCK DRIVER Pulse 65 01/30/2021 8:08 AM INTERMODAL TRUCK DRIVER Temperature 36.5 C (97.7 F) 01/30/2021 8:08 AM INTERMODAL TRUCK DRIVER Respiratory Rate 16 05/20/2017 8:42 AM INTERMODAL TRUCK DRIVER Oxygen Saturation 99% 01/30/2021 8:08 AM INTERMODAL TRUCK DRIVER Inhaled Oxygen Concentration - - Weight 57.8 kg (127 lb 8 oz) 01/30/2021 8:08 AM INTERMODAL TRUCK DRIVER Height 157.5 cm (5' 2) 01/30/2021 8:08 AM INTERMODAL TRUCK DRIVER Body Mass Index 23.32 01/30/2021 8:08 AM INTERMODAL TRUCK DRIVER Plan of Treatment Health Maintenance Due Date Last Done Comments Breast Cancer Screening-Mammogram 1974 Colon Cancer Screening-Colonoscopy 1974 Depression Screening 1974 Hepatitis C Screening 1974 DTaP/Tdap/Td Vaccine (1 - Tdap) 1985 Hepatitis B Screening 1992 Regular Well Visit/Exam 18-64 1992 Zoster Vaccine (1 of 2) 2024 Covid-19 Vaccine ( season) 2024 03/25/2021, 04/25/2020, 03/28/2020 Influenza Vaccine (#1) 2024 , 12/25/2021, 01/15/2019, Additional history exists Pneumococcal vaccine <65 Aged Out No longer eligible based on patient's age to complete this topic Insurance [facility] PPO [facility] PPO Care Teams Director Of Oncology Relationship Specialty Start Date End Date Ruiz Mensah DO [address] [place] [address] PCP - General Family Medicine 08/12/23
--- OUTSIDE RECORDS SUMMARY | 2025-02-16 09:41 | XMS_ITS | Clinical Summary ---
Author Organization [facility] Address [address] [facility], [address] [address] Phone Care Team Providers Care Expansion Joint Builder Name Role Phone Herlinda Elizondo APRN, DISABILITY PROGRAM NAVIGATOR Unavailable Ruiz Mensah MD Primary Care Provider [phone] Allergies Active Allergy Reactions Criticality Noted Date Comments Methotrexate Other (see Comments) Low 06/06/2021 Mouth and esophagus ulcerations Propranolol Swelling High 06/20/2021 Medications Topiramate 50 MG TabletIndication s:Migraine Take 100 mg by mouth 2 times daily. 150mg at night Indications: Migraine Headache 8 Active estradiol (ESTRACE) 1 MG Tablet Take 1 mg by mouth daily. 8 Active DiphenhydrAMINE HCl (BENADRYL ALLERGY PO)Indications:2 5-50mg prn Take by mouth. Acti ve acetaminophen (TYLENOL) 500 MG Tablet Take 500 mg by mouth every 4 hours as needed. Active sulfaSALAzine (AZULFIDINE) 500 MG Tablet 2 times daily. 1 Active folic acid (FOLVITE) 1 MG Tablet Take 1 mg by mouth daily. Active magnesium oxide (MAG-OX) 400 MG Tablet Take 200 mg by mouth. Active melatonin 3 MG Tablet Take by mouth nightly as needed. Active Ubrogepant 100 MG Tablet Take 100 mg by mouth as needed. Ubrely 2 Active Upadacitinib ER (Rinvoq) 15 MG TABLET SR 24 HR Take by mouth. Active Nurtec 75 MG TABLET DISPERSIBLE TAKE 1 TABLET BY MOUTH EVERY DAY NEEDED FOR MIGRAINE HEADACHE 4 Active budesonide (PULMICORT) 180 MCG/ACT AEROSOL POWDER, BREATH ACTIVATED take 1 Puff by inhalation 2 times daily. 1 Each 3 4 Active dexlansoprazole (DEXILANT) 60 MG CAPSULE DELAYED RELEASE TAKE 1 CAPSULE BY MOUTH EVERY DAY 90 Capsule 5 Active Active Problems Problem Noted Date Diagnosed Date Rheumatoid arthritis involving multiple sites Long-term use of high-risk medication 01/02/2021 H/O total hysterectomy 01/02/2021 Gastroesophageal reflux disease without esophagi tis 12/31/2019 Hiatal hernia 12/31/2019 Resolved Problems Problem Noted Date Diagnosed Date Resolved Date Eosinophilic esophagitis 12/31/2019 Esophageal stricture 12/31/2019 024 Encounters Date Type Department Care Team Description 01/10/2025 Telephone [facility] [address] [place] [address] Steve Newton MD 12/08/2024 Refill [facility] [address] [place] [address] Herlinda Elizondo APRN, DISABILITY PROGRAM NAVIGATOR Medication Refill from Last 3 Months Immunizations Immunization Administration Dates Next Due Influenza Seasonal, Intradermal, Preservative Fr ee 01/07/2012 Influenza Vaccine, Quadrivalent, PF 01/15/2019 Influenza, Seasonal, Injectable, Undefined 11/26 Family History Medical History Relation Name Comments Hypertension Father Cancer Maternal Grandfather Cancer Maternal Grandmother lung No Known Problems Mother Relation Name Status Comments Father Alive Maternal Grandfather Maternal Grandmother Mother Alive Social History Tobacco Use Types Packs/Day Years Used Date Smoking Tobacco: Never Smokeless Tobacco: Never Tobacco Cessation:Counseling Given: Not Answered Alcohol Use Standard Drinks/Week Comments No 0 [...] file Not on file Not on file Last Filed Vital Signs Vital Sign Reading Time Taken Comments Blood Pressure 124/80 11/13/2023 8:15 AM CDT Pulse 62 11/13/2023 8:15 AM CDT Temperature 36.9 C (98.4 F) 11/13/2023 8:15 AM CDT Respiratory Rate 14 11/13/2023 8:15 AM CDT Oxygen Saturation 100% 11/13/2023 8:15 AM CDT Inhaled Oxygen Concentration - - Weight 61.1 kg (134 lb 11.2 oz) 11/13/2023 8:15 AM CDT Height 157.5 cm (5' 2) 11/13/2023 8:15 AM CDT Body Mass Index 24.64 11/13/2023 8:15 AM CDT Plan of Treatment Upcoming Encounters Date Type Department Care Team (Late st Contact Info) Description 02/24/2025 8:00 AM PARK ATTENDANT Office Visit [facility] [place] [address] [place] [address] Steve Newton MD [address] [address] Health Maintenance Due Date Last Done Comments Hepatitis C Virus (HCV) Screening 1974 Mammogram 1974 Hepatitis B Immunization (1 of 3 - 19+ 3-dose series) 1993 Cologuard 2019 Immunochemical Fecal Occult Blood 2019 Pneumococcal Immunization (50+ years) (1 of 1 - PCV) 2024 Zoster Immunization (1 of 2) 2024 Influenza Immunization (#1) 11/15/202412/15, 12/25/2021, 01/15/2019, Additional history exists SARS-COV-2 Immunization ( season) 2024 03/25/2021, 04/25/2020, 03/28/2020 Colonoscopy 01/01/2026 01/01/2019 Colorectal Cancer Screening 01/01/2026 Respiratory Syncytial Virus (RSV) Immunization (Adult) (1 - 1-dose 75+ series) 2049 DTaP/Tdap/Td Immunization Discontinued 07/01/2023 TdaP Immunization Completed 07/01/2023 Human Papillomavirus (HPV) Immunization Aged Out No longer eligible based on patient's age to complete this topic Meningococcal Immunization (ACWY) Aged Out No longer eligible based on patient's age to complete this topic Rotavirus Immunization Aged Out No lo nger eligible based on patient's age to complete this topic Insurance [facility] Care Teams Expansion Joint Builder Relationship Specialty Start Date End Date Ruiz Mensah MD [address] [place] [id number] PCP - General Family Medicine 09/23/23 Herlinda Elizondo APRN, DISABILITY PROGRAM NAVIGATOR [address] [place] [address] Nurse Practitioner Advanced Practice Nurse 09/24/22
--- OUTSIDE RECORDS SUMMARY | 2025-02-16 09:41 | XMS_ITS | Encounter Summary ---
Author Organization [facility] Address [address] [place] [address] Phone Care Team Providers Care Hair Boiler Operator Name Role Phone Johnathan Thomas MD Primary Care Provider [phone] Herlinda Elizondo APRN, RADIO ENGINEER Unavailable Ruiz Mensah MD Primary Care Provider [phone] Reason for Visit * Reason Comments Medication Refill Encounter Details Date Type Department Care Team (Late st Contact Info) Description 11/09/2022 Refill [facility] [place] [address] [place] [id number] Celsa Mack Sav[place], PAC [address] [place] [address] Medication Refill Social History Tobacco Use Types [...] Telephone Encounter - Precious Alicia RN - 11/11/2022 10:21 AM CDT Per nursing clinical judgement, provider to review and approve the medication(s) order(s) if appropriate. Requested Prescriptions Pending Prescriptions Disp Refills Dexlansoprazole 60 MG CAPSULE DELAYED RELEASE [Pharmacy Med Name: DEXLANSOPRAZOLE DR 60 MG CAP] 90 Capsule 3 Sig: TAKE 1 CAPSULE BY MOUTH EVERY DAY Proton Pump Inhibitors Protocol Passed - 11/09/2022 8:13 AM Passed - Visit with relevant provider in past 12 months or upcoming 90 days Recent Visits Date Type Provider Dept 09/24/22 Office Visit Herlinda Elizondo APRN, RADIO ENGINEER [facility] [place] 01/04/22 Office Visit Celsa Mack, PAC [facility] [place] Showing recent visits within past 365 days and meeting all other requirements Future Appointments No visits were found meeting these conditions. Showing future appointments within next 90 days and meeting all other requirements documented in this encounter Plan of Treatment Upcoming Encounters Date Type Department Care Team (Late st Contact Info) Description 02/24/2025 8:00 AM BUNDLE BREAKER [facility] [place] [address] [place] [address] Steve Newton MD [address] [address] documented as of this encounter Visit Diagnoses Not on filedocumented in this encounter Additional Health Concerns Assessment Noted Time PHQ-9 Depression Total Score: 0 03/03/20 18 10:40 AM BUNDLE BREAKER documented as of this encounter Care Teams Hair Boiler Operator Relationship Specialty Start Date End Date Johnathan Thomas MD [address] [place] [address] PCP - General Internal Medicine 01/27/18 09/22/23 Ruiz Mensah MD [address] [place] [id number] PCP - General Family Medicine 09/23/23 Herlinda Elizondo APRN, RADIO ENGINEER [address] [place] [address] Nurse Practitioner Advanced Practice Nurse 09/24/22 documented as of this encounter
--- OUTSIDE RECORDS SUMMARY | 2025-02-16 09:41 | XMS_ITS | Clinical Summary ---
Author Organization [facility] Address [address] [place] [address] Care Team Providers Care Chairlift Operator Name Role Phone Johnathan Thomas MD Primary Care Provider [phone] Source Comments [facility],non-owned Affiliates and Associated Physician Practices is amultiple site organization consisting of ambulatory clinics and hospital sitesin [place], [place], [place] and [place]. This disclosure is being madepursuant to the Care Everywhere program and may not contain all information available regarding this patient. Last updated 17.[facility] Allergies Active Allergy Reactions Criticality Noted Date Comments Methotrexate Other Low 06/06/2021 Mouth and esophagus ulcerations Propranolol Angioedema High 06/20/2021 Medications * Be aware that medications may not be up to date on this document. Alwaysverify current medications with the patient. Topiramate (TOPAMAX PO) Take 250 mg by mouth once daily Active diphenhydrAMIN E HCl (BENADRYL ALLERGY PO) Active dexlansoprazol e (Dexilant) 30 MG capsule Take 2 (two) capsules by mouth once daily 2 Active estradiol (Estrace) 2 MG tablet 1 Active folic acid (Folvite) 1 MG tablet Take 1 (one) tablet by mouth once daily Active magnesium oxide (Mag-Ox) 400 MG tablet Take 0.5 (one-half) tablet by mouth Active melatonin 3 MG tablet Active sulfaSALAzine (Azulfidine) 500 MG tablet 2 times daily 1 Active ubrogepant (Ubrelvy) 100 MG tablet Take 1 (one) tablet by mouth as needed 2 Active acetaminophen (Tylenol) 325 MG tablet Take 2 (two) tablets by mouth every 6 hours as needed for Fever or Pain Maximum allowable Acetaminophen amount = 4 Grams (4000 mg) / 24 hours. 30 tablet 3 Active oxyCODONE, immediate release, (Roxicodone) 5 MG tabletIndicati ons:Mass of left parotid gland Take 1 (one) tablet by mouth every 6 hours as needed for Pain 12 tablet 3 Active Additional Information Patient not taking.Reported on 05/03/2022 ibuprofen (Motrin) 600 MG tablet Take 1 (one) tablet by mouth every 6 hours as needed for Pain 30 tablet 3 Active topiramate (Topamax) 50 MG tablet Take 2 (two) tablets by mouth as directed 2 Active dexlansoprazol e (Dexilant) 60 MG capsule Take 1 (one) capsule by mouth once daily 2 Active Active Problems No known active problems Resolved Problems Problem Noted Date Diagnosed Date Resolved Date Mass of left parotid gland 04/15/2022 0 05/03/2022 Immunizations Immunization Administration Dates Next Due FLU VACCINE TRI IIV3 SPLIT IM (FLUVIRIN) 013 HIB VACCINE 11/26/2012 INFLUENZA VACCINE 12/25/2021 INFLUENZA VACCINE, QUADR. (F LUZONE; FLULAVAL; FLUARIX; AFLURIA QUADRIVALENT; 6MO+), 0.5 ML (IIV4) 01/15/2019 Influenza Intradermal 01/07/2012 Social History Tobacco Use Types Packs/Day Years Used Date Smoking Tobacco: Never Tobacco Cessation:Counseling Given: Not Answered Alcohol Use Standard Drinks/Week Comments Not Asked 0 (1 standard drink = 0.6 oz pur e alcohol) few times a month Comments No Sex and Gender Information Value Date Recorded Sex Assigned at Not on file Legal Sex Female 6:13 AM SECURITY MANAGER Gender Identity Not on file Sexual Orientation Not on file Last Filed Vital Signs Vital Sign Reading Time Taken Comments Blood Pressure 120/83 05/03/2022 9:43 AM SECURITY MANAGER Pulse 59 05/03/2022 9:43 AM SECURITY MANAGER Temperature 36.9 C (98.4 F) 04/16/2022 7:43 AM SECURITY MANAGER Respiratory Rate 16 04/16/2022 7:43 AM SECURITY MANAGER Oxygen Saturation 98% 04/16/2022 7:43 AM SECURITY MANAGER Inhaled Oxygen Concentration - - Weight 61.1 kg (134 lb 9.6 oz) 05/03/2022 9:43 A M SECURITY MANAGER Height 157.5 cm (5' 2) 05/03/2022 9:43 AM SECURITY MANAGER Body Mass Index 24.62 05/03/2022 9:43 AM SECURITY MANAGER Plan of Treatment Health Maintenance Due Date Last Done Comments COLOGUARD (AGES 45-75) - COLON CA SCREENING 1974 COLON MONITORING 1974 COLONOSCOPY - COLON CA SCREENING 1974 CT COLONOGRAPHY - COLON CA SCREENING 1974 Colorectal Cancer Screening 1974 FIT - COLON CA SCREENING 1974 FLEX SIG - COLON CA SCREENING 1974 LIPID TESTING 1974 MAMMOGRAM 1974 HIV SCREENING 1989 HEPATITIS C SCREENING 04/29/1992 DTAP/TDAP/TD VACCINES (1 - Tdap) 1993 HEPATITIS B VACCINE (1 of 3 - 19+ 3-dose series) 1993 DEPRESSION SCREENING 03/17/2024 MEDICARE AWV CALENDAR YEAR 2024 PNEUMOCOCCAL VACCINE 50+ (1 of 1 - PCV) 2024 ZOSTER VACCINE (1 of 2) 2024 COVID-19 VACCINE (4 - 2024- season) 2024 03/25/2021, 04/25/2020, 03/28/2020 INFLUENZA VACCINE (#1) 2024 , 01/15/2019, 11/26/2012, Additional history exists HIB VACCINE Aged Out 11/26/2012 No longer eligi ble based on patient's age to complete this topic HPV VACCINE Aged Out No longer eligi ble based on patient's age to complete this topic MENINGOCOCCAL (Group B) VACCINE SHARED DECISION-MAKING Aged Out No longer eligible based on patient's age to complete this topic MENINGOCOCCAL GROUPS A/C/Y/W VACCINE Aged Out No longer eligible based on patient's age to complete this topic Insurance [employer] AETNA MEDICARE ADV AETNA AET Advance Directives * Full Code (Latest Code Status on File) Date Activated Date Inactivated Comments 04/15/2022 2:15 PM 04/16/2022 12:14 PM Care Teams Chairlift Operator Relationship Specialty Start Date End Date Johnathan Thomas MD [address] [place] [address] PCP - General 01/27/22
[2025-02-16 09:53] LABS: Iron 121 ug/dL (37-170)
[2025-02-16 09:55] LABS: Alanine Aminotransferase 20 U/L (6-35); Albumin Level 4.5 g/dL (3.5-5.1); Alkaline Phosphatase 66 U/L (38-126); Anion Gap 10 mmol/L (4-12); Aspartate Amino Transferase 28 U/L (14-36); Bilirubin,Total 0.3 mg/dL (0.2-1.3); Blood Urea Nitrogen 18 mg/dL (7-17); Calcium 9.1 mg/dL (8.4-10.2); Carbon Dioxide 19 mmol/L (22-30); Chloride 113 mmol/L (98-107); Cholesterol 235 mg/dL (0-200); Estimated Glomerular Filt Rate 53; Glucose 88 mg/dL (65-110); HDL Direct 86 mg/dL; Osmolality Calculated 294 mOsm/kg (285-295); Potassium 4.3 mmol/L (3.4-5.0); Sodium 142 mmol/L (137-145); Total Protein 7.3 g/dL (6.3-8.2); Triglycerides 160 mg/dL (<150)
[2025-02-16 10:03] LABS: Percent Iron Saturation 35 % (20-50)
[2025-02-16 10:30] LABS: Ferritin 19.30 ng/mL (11.1-264)
== END 2025-02-16 09:01 | disposition home or self-care (01) ==
PROVIDERS: PCP Family Medicine; Visit Provider Family Medicine
DX: Z86.69 Personal history of other diseases of the nervous system and sense organs (principal); Z82.49 Family history of ischemic heart disease and other diseases of the circulatory system; D50.9 Iron deficiency anemia, unspecified
CPT/HCPCS: 36415; 80053; 80061; 82728; 83540; 83550; 85025